=== PATIENT | male | born 1975 | race Caucasian/White ===

== ENCOUNTER 2018-08-29 06:34 | Day surgery (SDC) | payer BC ==
[~2018-08-29] VITALS: Ht 182.9 cm; Wt 120.2 kg
[2018-08-29 07:14] LABS: CALCIUM 8.9 mg/dL (8.5-10.1); CARBON DIOXIDE 24.9 mmol/L (21.0-32.0); CREATININE - SERUM 5.3 mg/dL (0.6-1.3); POTASSIUM - SERUM 3.9 mmol/L (3.5-5.1)
[2018-08-29 07:27] LABS: BASOPHILS 0.6 % (0-2); EOSINOPHILS 4.7 % (0-7); HEMATOCRIT 35.2 % (42.0-54.0); HEMOGLOBIN 11.4 g/dL (13.5-17.5); IMMATURE GRANULOCYTES 0.5 % (0-5); LYMPHOCYTES 15.8 % (15-50); MCH 26.3 pg (26.0-34.0); MCHC 32.4 g/dL (31.0-37.0); MCV 81.3 fL (80.0-100.0); MEAN PLATELET VOLUME 10.2 fL (7.4-10.4); MONOCYTES 15.1 % (2-11); NEUTROPHILS 63.3 % (40-80); PLATELET COUNT 199 10x3/uL (130-400); RBC 4.33 10x6/uL (4.20-6.10); RDW 17.7 % (11.5-14.5); WBC 8.1 10x3/uL (4.8-10.8)
[2018-08-29 07:39] VITALS: BP 150/86; Ht 182.9 cm; Wt 120.2 kg
[2018-08-29 07:59] LABS: APTT 31.4 SECONDS (22.8-39.4); PROTIME 12.7 SECONDS (11.6-15.0)
[2018-08-29] MEDS ORDERED: PROTONIX40 MG PO (08:06)
[2018-08-29] MEDS ORDERED: CATAPRES0.2 MG PO (08:06)
[2018-08-29] MEDS ORDERED: ATARAX 25 MG TA25 MG PO (08:06)
[2018-08-29] MEDS ORDERED: HYDRALAZINE HC100 MG PO (08:06)
[2018-08-29] MEDS ORDERED: HYDROCO (08:07)
[2018-08-29] MEDS ORDERED: APAP (08:07)
[2018-08-29] MEDS ORDERED: BUMETANIDE TAB 1MG (08:07)
[2018-08-29] MEDS ORDERED: TRAZODONE TAB 50M (08:08)
[2018-08-29] MEDS ORDERED: RENA-VITE TABL0.8 MG PO (08:08)
[2018-08-29] MEDS ORDERED: UROXATRAL10 MG PO (08:09)
[2018-08-29] MEDS ORDERED: HYDROCODON-ACE1 EAC7 PO (11:18)
--- NOTE | 2018-09-01 13:37 | OP ---
PATIENT NAME: ANATOLIY BHATIA JR MEDICAL RECORD: [id number] :73 LOCATION:D[facility] ADMISSION DATE: SURGEON: CELI SKINNER MD DATE OF OPERATION: 08/29/2018 REFERRED BY: Dr. Neptali Thapa. PREOPERATIVE DIAGNOSES: End-stage renal disease and dependence on hemodialysis. POSTOPERATIVE DIAGNOSES: End-stage renal disease and dependence on hemodialysis. OPERATION PERFORMED: 1. Creation of the left wrist Denise radiocephalic arterial venous fistula. 2. Laparoscopic implantation of peritoneal dialysis catheter. SURGEON: Celi Skinner MD ANESTHESIA: General endotracheal plus regional nerve block per BRAZER HELPER INDUCTION. PREOPERATIVE NOTE: Mr. Bhatia is a 42-year-old white male from [place], on dialysis with a right internal jugular tunneled dialysis catheter. He needs long-term access and was referred to me for a fistula and a PD catheter. DESCRIPTION OF PROCEDURE: Under anesthesia, the patient was prepped and draped in sterile manner. The fistula was done first, I examined him with Duplex ultrasound after applying a proximal venous tourniquet and after the application of topical nitroglycerin paste. He had a good cephalic vein from the wrist to the deltopectoral groove and a large clean radial artery and I elected to go ahead with this Denise wrist fistula. I made a longitudinal incision and mobilized the cephalic vein and the radial artery, the latter was controlled with Silastic loops. The vein was fully mobilized and ligated distally with a 3-0 Vicryl and was then transected and bevelled, flushed and hydrostatically distended with heparinized saline. The artery was occluded and a small arteriotomy made. The artery was flushed proximally and distally with heparinized saline. No other systemic anticoagulation was utilized. The vein was anastomosed to the artery, end of vein to side of artery with a running 7-0 Prolene. When completed and with release of the occluding loops and clamps, excellent flow developed immediately within the fistula and there was excellent continuous pulsatile Doppler flow in the fistula and in the radial artery. The suture line was hemostatic and otherwise hemostasis was obtained with discrete use of electrocautery in the wound. The wound was irrigated with saline and then closed without the use of a drain with a few interrupted inverted 3-0 Vicryls and running intracuticular 4-0 Monocryl and Dermabond glue. The wound was dressed with Maxorb Ag, Tegaderm, and Cavilon skin prep. Next, the patient's arm was tucked and the PD catheter inserted. The abdomen was prepped and draped simultaneously as the left arm. I made a small incision in the left upper quadrant below the costal margin and lateral to the rectus muscle. A 5-mm XL Optiview type port with a 0-degree 5-mm laparoscope was inserted. A pneumoperitoneum was established with carbon dioxide. The patient had no significant amount of omentum in the lower half of the pelvis. There were no abnormalities, inflammation, or adhesions seen and no hernias detected. The abdomen was deflated. I then measured with the dual cuff swan neck coil catheter from the top of the coil up in the midline and identified a site for OPERATIVE REPORT [id number] ANATOLIY BHATIA JR placement of the Dacron felt cuff within the rectus muscle. I made an incision and exposed the anterior rectus sheath and used a needle and guidewire passed through the anterior abdominal wall at an angle keeping it within the rectus muscle and anterior to the peritoneum as far inferiorly as possible. Over the guidewire, then a peel-away introducer dilator was inserted and lastly the coiled dual cuff swan neck catheter was inserted. The catheter had been irrigated, flushed, and washed with heparinized saline and air expressed from the Dacron felt cuffs. The catheter was placed in a subcutaneous tunnel to the exit site, which was identified preoperatively. The catheter was irrigated and I noted that it flushed very easily and return of saline was easy as well and this also was done after insufflation was exhausted. The catheter was heparin locked, clamped, and capped and a sterile dressing applied over it. A pursestring suture of 0 Vicryl was placed in the anterior rectus sheath at the insertion site around the catheter and that wound was infiltrated with 0.25% Marcaine with epinephrine and closed with interrupted inverted 3-0 Vicryl and then running intracuticular 4-0 Monocryl and Dermabond glue, Maxorb Ag, Tegaderm, and Cavilon skin prep. The laparoscopic port and scope were then removed and that site closed with a simple interrupted inverted 3-0 Vicryl and Dermabond glue and dressed with Maxorb Ag, Tegaderm, and Cavilon skin prep. The patient was then awakened and extubated and taken to the recovery room in stable condition. There was no blood loss during the procedure. Sponges, instruments, and needles were accounted for. No drain was used and no surgical specimen was submitted for histopathology. PLAN: For the patient to go home today with a prescription for 10 Sanders 5/325 tablets. He can take 1 every 4 hours as needed for pain and is advised to use an ice pack on the abdomen for discomfort and elevate his forearm and wrist as needed. He is to have an appointment scheduled to see me in the office next week and also he needs an appointment to see the peritoneal dialysis nurse in [place] to have his catheter flushed next week, hopefully before his appointment to see me. He will continue all the same medications, diet, dialysis schedule, etc. I thought that the patient's vessels were excellent and I expect that the fistula should mature to a very good and usable fistula hopefully and probably without intervention, one might expect it to be usable in 6 weeks. The peritoneal dialysis catheter should be usable that is he could start exchanges in 2 weeks. TRANSINT:[id number] Voice Confirmation ID: [id number] DOCUMENT ID: [id number] cc: Tereza Cordero [place], [place] [phone] CELI SKINNER MD at 1337 CC: ANDREI CORDERO and NEPTALI THAPA [phone] DICTATION DATE: 08/29/18 1137 TRUCKSMITH: 08/29/18 1235 [facility] 08/29/18 [facility] [address] [place] [address]
== END 2018-08-29 14:30 | disposition home or self-care (01) ==
LOC: D.OPS 06:34
PROVIDERS: Surgery
DX: I12.0 Hypertensive chronic kidney disease with stage 5 chronic kidney disease or end stage renal disease (principal); N18.6 End stage renal disease; Z99.2 Dependence on renal dialysis

== ENCOUNTER 2019-12-21 05:51 | Inpatient (IN) | payer BC, MEDICARE ==
[~2019-12-21] VITALS: Ht 188 cm; Wt 131.4 kg
--- NOTE | ~2019-12-21 | OP ---
PATIENT NAME: ANATOLIY BHATIA JR MEDICAL RECORD: [id number] :73 LOCATION:D. D.2136 ADMISSION DATE:12/21/19 SURGEON: CELI SKINNER MD DATE OF OPERATION: 12/21/2019 He was brought to the hospital as an outpatient, but is being admitted to inpatient status. REFERRING PHYSICIAN: Dr. Calvert and Dr. Pineda. PREOPERATIVE DIAGNOSES: End-stage renal disease and dependence on renal dialysis and nonfunctioning peritoneal dialysis catheter and mechanical complication of a left radiocephalic Denise arteriovenous fistula. POSTOPERATIVE DIAGNOSES: End-stage renal disease and dependence on renal dialysis and nonfunctioning peritoneal dialysis catheter and mechanical complication of a left radiocephalic Denise arteriovenous fistula with the additional diagnosis of pelvic peritonitis due to probable diverticulitis and phlegmon with possible colovesical fistula. OPERATION PERFORMED: First peritoneogram via peritoneal dialysis catheter with attempt to manipulate the dialysis catheter, which was unsuccessful followed by laparoscopy and clearance of the peritoneal dialysis catheter and examination of phlegmonous inflammatory process in the pelvis and sampling of purulent fluid for Gram stain and culture and sensitivities. Then, in addition, I placed a right internal jugular triple lumen Trialysis acute dialysis catheter. SURGEON: Celi Skinner MD ANESTHESIA: General endotracheal per VOICE TEACHER. PREOPERATIVE NOTE: This 44-year-old white male patient from [place] is on chronic peritoneal dialysis with the catheter I placed I think about 2 years ago. He has been working fine up until the last 2-3 weeks when it stopped draining. He has a left wrist Denise-type radiocephalic AV fistula, but it apparently has a stenosis, which is making it difficult to access and use for hemodialysis. The patient was treated with laxatives to treat a problem with chronic constipation by the peritoneal dialysis nurse specialist. He reports that he had little results from that. He has been having considerable lower abdominal and pelvic discomfort associated with he believes is peritoneal dialysis attempts and presence of a catheter. He also admits to having urinary symptoms which he has attributed to prostatism and chronic constipation. He is brought to the OR at this time with plans to try to clear or revise his peritoneal dialysis catheter, possibly with laparoscopy. Also, if we can I will do a fistulogram and try to intervene as needed on the Denise fistula. Under anesthesia, the patient was placed in supine position, prepped and draped in sterile manner. I first used fluoroscopy to examine and locate the peritoneal dialysis catheter. I saw the coil located in the right lower quadrant of the abdomen really out of the pelvis and not in satisfactory position. I injected Contrast Material and filled basically the tissue around the coiled end of the catheter and the right gutter without any significant flow into the pelvis. I attempted to manipulate the catheter with a Marilyn catheter and with an Amplatz wire and with a Roadrunner wire but really was unsuccessful with all these modes and I elected to go ahead with laparoscopy. OPERATIVE REPORT [id number] ANATOLIY BHATIA JR TECHNIQUE: A 5 mm port was placed through an incision in the left upper quadrant and a 30-degree 5-mm scope was inserted after pneumoperitoneum was established. The catheter was seen in the right lower quadrant and bowel was filling the pelvis. There was really no visible omentum in the lower abdomen. The patient was placed in Trendelenburg position to help move the bowel from pelvic area and I inserted 2 additional 5-mm ports, one in the left lower quadrant and one in the right through which I is used instruments to help retract the intestine. I identified a true pelvis and found that there were adhesions in the upper pelvis between the sigmoid colon and the urinary bladder which were quite dense and this inflammatory process involved small bowel as well and I thought might well represent diverticulitis with colovesical fistula even as a possibility. I really did not see any large number of diverticula and the possibility of cancer or neoplasm and certainly real as well. I did not see the appendix, but I did not think this looked like an appendicitis. The purulent fluid, which I was able to expose in the pelvis was suctioned away and sent for culture and Gram stain. The Gram stain report returned moderate wbc's with occasional or rare Gram-positive cocci. It was cultured for aerobic and anaerobic organisms. At this point in the operation, my inclination was to go ahead with an open laparotomy approach to explore the pelvis and made preparations for that, but change my mind and the patient's instrumentation was removed and the incisions closed and dressed and the patient awakened and extubated and taken to the recovery room. I plan to obtain a CT scan of the abdomen and pelvis with contrast and if necessary, a cystogram and we will obtain consultation with other general surgeons and if possible with urology as well as nephrology. I think he will need to be returned to the operating room for a resection. Hopefully, he will be able to have a mechanical bowel prep before that and be able to avoid a stoma. I did not think it is appropriate to try to go ahead and do any work on his fistula today, but I realized that he will need dialysis access and so I had him prepped and draped and inserted a triple lumen Trialysis 15 cm catheter with real time ultrasound as well as fluoroscopic guidance via the right internal jugular vein. Ultrasound images were documented per the PACS system and will be maintained for the patient record. TRANSINT:[id number] Voice Confirmation ID: [id number] DOCUMENT ID: [id number] CELI SKINNER MD CC: RICO PINEDA MD and FANTASMA CALVERT DO [id number] DICTATION DATE: 12/21/19 160 GENERAL FARMWORKER: 12/22/19 0127 ADM IN [facility] [address] [place] [address]
--- NOTE | ~2019-12-21 | OP ---
PATIENT NAME: ANATOLIY BHATIA JR MEDICAL RECORD: [id number] :73 LOCATION:D.M2 D.2136 ADMISSION DATE:12/21/19 SURGEON: CELI SKINNER MD DATE OF OPERATION: 12/25/2019 DIAGNOSES: End-stage renal disease and dependence on hemodialysis and pelvic peritonitis due to diverticulitis complicating peritoneal dialysis and AV fistula stenosis. OPERATION PERFORMED: Fistulogram with balloon angioplasty of left radiocephalic AV fistula and removal of peritoneal dialysis catheter. SURGEON: Celi Skinner MD ANESTHESIA: General endotracheal per DAMPENER. PREOPERATIVE NOTE: Mr. Bhatia is a 44-year-old white male patient from [place], who has end-stage renal disease and is on chronic home peritoneal dialysis. His peritoneal catheter ceased to function or began to function poorly about three weeks ago, and he had been dialyzed with his left radiocephalic AV fistula, but that was noted to have a stenosis. Last week, I performed a laparoscopy with the intent of revising the peritoneal dialysis catheter and, sounds, pelvic peritonitis from what I believe to be diverticulitis, which did not actually involve the peritoneal catheter. I did not remove the catheter, but did nothing else really to revise it. I did move it from the right lower quadrant, more towards the midline, but it migrated back to the right lower quadrant right away. I then did not perform a fistulogram, but admitted the patient to the hospital for antibiotic therapy and further evaluation with CT scan, etc. He is now at this time, very much improved, afebrile with a normal white count and abdomen soft. He still complains of some abdominal pain, but it is minimal and I am bringing him back to the operating room at this time to go ahead and remove the peritoneal dialysis catheter, which I do not think will be usable and I plan to do the fistulogram and whatever indicated procedures are necessary for his AV fistula. DESCRIPTION OF PROCEDURE: Under anesthesia in supine position, the patient was prepped and draped in sterile manner. I accessed the fistula near the arterial anastomosis with a 7-Azeri introducer using micropuncture technique. I did use ultrasound for real-time guidance and images were obtained and placed in the patient's permanent record for documentation. I examined the fistula with ultrasound and noted that there was evidence of a stenosis only a few inches proximal to the arterial anastomosis. Contrast injections confirmed the presence of a single stenosis, and there were no other problems seen with good runoff via the cephalic vein through the cephalic arch and central veins to the right atrium. I then performed an angioplasty with an 8 millimeter balloon. This required a [employer] high pressure balloon to dilate the area of stenosis, which was about 70% diameter reducing and about 1.5 to 2 cm long. We got full effacement of the balloon at 20 atmospheres. Subsequent contrast studies demonstrated a satisfactory 10% residual diameter stenosis at this point. The outflow was occluded with a balloon and contrast injected for a retrograde study. This demonstrated a large collateral vein carrying flow distally into the hand and forearm and also demonstrated the JA segment to be somewhat aneurysmal and the arterial anastomosis itself to be widely patent with normal flow through dilated OPERATIVE REPORT [id number] ANATOLIY BHATIA JR proximal radial artery and good flow into the distal artery with filling of the palmar arch, but no filling of the ulnar artery. The introducer was removed and hemostasis obtained with a tnugtj-si-avand 4-0 Prolene suture. A sterile dressing was applied. The abdomen was then exposed and the previous vertical incision reopened and carried down to the peritoneal dialysis catheter. The deep cuff was exposed and dissected from the surrounding rectus sheath and then gently elevated and the internal portion of the catheter removed intact. The superficial cuff was then dissected and freed from the surrounding tissues and the catheter transected and the external and internal portion was then removed. The wound was infiltrated with 0.25% Marcaine and irrigated with Ancef/gentamicin solution and closed with interrupted inverted 3-0 Vicryl and surgical gaby. A dressing of Maxorb Ag, Tegaderm, and Cavilon skin prep was applied. At that point, the patient was awakened and extubated and taken to the recovery room in stable condition. Blood loss was insignificant and unreplaced. Sponges, instruments, and needles were accounted for. No surgical specimen was submitted for histopathology. PLAN: I believe the patient is ready to have his antibiotics stopped and be sent home on a renal diet as tolerated. I will need to see him back in my office next week for wound check and staple removal. Dr. Lyons who has been seeing the patient at my request, I hope, will see the patient back, and I hope he will perform a colonoscopy in about six weeks. I would like this patient to have a fistulogram done at [facility] in about a month and consideration then for coiling or ligation of the large diverting collateral. TRANSINT:[id number] Voice Confirmation ID: [id number] DOCUMENT ID: [id number] cc: [facility] dialysis in CELI Ricketts MD CC: RICO BONILLA MD and CELI LYONS MD [phone] DICTATION DATE: 12/25/19 1511 WORM GROWER: 12/26/19 0208 DIS IN 12/25/19 [facility] [address] [place] [id number]
[~2019-12-21 05:51] MED LIST: APAP; ATARAX 25 MG TA25 MG PO; BUMETANIDE TAB 1MG; CATAPRES0.2 MG PO; HYDRALAZINE HC100 MG PO; HYDROCO; HYDROCODON-ACE1 EAC7 PO; PROTONIX40 MG PO; RENA-VITE TABL0.8 MG PO; TRAZODONE TAB 50M; UROXATRAL10 MG PO
[2019-12-21 06:13] LABS: BASOPHILS 0.2 % (0-2); EOSINOPHILS 3.4 % (0-7); HEMATOCRIT 39.7 % (42.0-54.0); HEMOGLOBIN 12.9 g/dL (13.5-17.5); IMMATURE GRANULOCYTES 0.3 % (0-5); LYMPHOCYTES 10.7 % (15-50); MCH 31.1 pg (26.0-34.0); MCHC 32.5 g/dL (31.0-37.0); MCV 95.7 fL (80.0-100.0); MEAN PLATELET VOLUME 9.8 fL (7.4-10.4); MONOCYTES 9.6 % (2-11); NEUTROPHILS 75.8 % (40-80); PLATELET COUNT 214 10x3/uL (130-400); RBC 4.15 10x6/uL (4.20-6.10); RDW 13.9 % (11.5-14.5); WBC 12.8 10x3/uL (4.8-10.8)
[2019-12-21 06:21] LABS: CALCIUM 8.8 mg/dL (8.5-10.1); CARBON DIOXIDE 29.5 mmol/L (21.0-32.0); CREATININE - SERUM 5.6 mg/dL (0.6-1.3); POTASSIUM - SERUM 3.5 mmol/L (3.5-5.1)
[2019-12-21 06:29] LABS: INR 1.07 (0.85-1.17); PROTIME 13.9 SECONDS (11.6-15.0)
[2019-12-21] MEDS ORDERED: BUMEX2 MG PO ×2 (08:24→23:26)
[2019-12-21] MEDS ORDERED: NORVASC10 MG PO (08:24)
[2019-12-21] MEDS ORDERED: CARDURA8 MG PO (08:25)
[2019-12-21] MEDS ORDERED: METOPROLOL TART50 MG PO (08:56)
[2019-12-21] MEDS ORDERED: KLONOPIN1 MG PO (08:56)
[2019-12-21 09:03] VITALS: BMI 38.6
[2019-12-21 16:27] VITALS: BP 130/77; BMI 38.6
--- NOTE | 2019-12-21 20:07 | NUR ---
RECEIVED UP IN BED WITH EYES OPEN AND TV ON. ALERT AND ORIENTED X4. UP AD LOIB TO B/R. O2@ 3 LITERS PER N/C IN PLACE. IV TO RT HAND WITH NS AT KVO. AVF TO LT WRIST AREAHAS GOOD BRUIT. PD CATH TO LLQ. HAS 3 DSG TO ABD THAT ARE CDI. RT IJ THAT IS SL. F/C IN PLACE WITH NO OUTPUT AT THIS TIME. DENIES ANY NEEDS AT THIS TIME.
[2019-12-21 21:12] VITALS: BP 131/77
--- NOTE | 2019-12-22 00:08 | NUR ---
VOICED CONCERNS OF HIS MEDICATIONS. HAD REEMA SHARIF PAGED. RETURN CALL WITH NEW ORDERS TO GIVE HIM HYDRALAZINE,CLONIDINE AND KLONIPINE. TO GO AHEAD AND RESTART THEM. REEMA STATED SHE WOULD LOOK AT HIS MEDICATIONS IN AM. NOTIFIED PT OF NEW ORDERS AND GAVE HIM THE MEDS. WILL RECHECK B/P. 155/100 AT THIS TIME.
[2019-12-22 00:09] VITALS: BP 155/100
[2019-12-22 05:07] VITALS: BP 138/84
--- NOTE | 2019-12-22 07:32 | NUR ---
PT RESTING PEACEFULLY, WOKE EASILY I ENTERED ROOM. NO COMPLAINTS OR CONCERNS STATED AT THIS TIME.ALL QUESTIONS ANSWERED TO THE BEST OF MY ABILITY. CL IN REACH,S RX2.
[2019-12-22 08:46] LABS: BASOPHILS 0.1 % (0-2); EOSINOPHILS 0.2 % (0-7); HEMATOCRIT 38.7 % (42.0-54.0); HEMOGLOBIN 12.1 g/dL (13.5-17.5); IMMATURE GRANULOCYTES 0.4 % (0-5); LYMPHOCYTES 4.4 % (15-50); MCH 30.6 pg (26.0-34.0); MCHC 31.3 g/dL (31.0-37.0); MEAN PLATELET VOLUME 10.2 fL (7.4-10.4); NEUTROPHILS 87.9 % (40-80); PLATELET COUNT 230 10x3/uL (130-400); RBC 3.96 10x6/uL (4.20-6.10); RDW 13.7 % (11.5-14.5); WBC 14.2 10x3/uL (4.8-10.8)
[2019-12-22 08:50] LABS: MCV 97.7 fL (80.0-100.0)
[2019-12-22 08:55] VITALS: Ht 188 cm; Wt 131.4 kg
[2019-12-22 09:07] LABS: ALBUMIN 2.6 g/dL (3.4-5.0); ANION GAP 14.6 mmol/L (8-16); BILIRUBIN - TOTAL 0.43 mg/dL (0.2-1.3); CALCIUM 8.8 mg/dL (8.5-10.1); CARBON DIOXIDE 24.6 mmol/L (21.0-32.0); CREATININE - SERUM 6.4 mg/dL (0.6-1.3); POTASSIUM - SERUM 4.2 mmol/L (3.5-5.1); PROTEIN - SERUM 6.7 g/dL (6.4-8.2)
[2019-12-22 09:44] VITALS: BP 133/84
--- NOTE | 2019-12-22 10:18 | NUR ---
PT AWAKE AND ORIENTED, TAKEN TO CT AND BACK. NO COMPLAINTS OR CONCERNS AT THIS TIME. ALL QUESTIONS ANSWERED TO THE BEST OF MY ABILITY. CL IN REACH, SRX2.
[2019-12-22 12:54] VITALS: BP 143/89
--- NOTE | 2019-12-22 15:47 | NUR ---
NEW ORDER RECEIVED FROM FOR MIRALAX 17GM DAILY.
[2019-12-22 16:00] VITALS: BP 145/84
--- NOTE | 2019-12-22 17:23 | NUR ---
PT TAKEN TO DIALYSIS
[2019-12-22 20:00] VITALS: BP 149/91
--- NOTE | 2019-12-22 21:00 | NUR ---
PT UP IN CHAIR, AAO X 3, RESP EVEN AND UNLABORED. NO DISTRESS NOTED, CLIN REACH, SR UP X 2.
[2019-12-23] VITALS: BP 164/101
--- NOTE | 2019-12-23 02:06 | NUR ---
I have reviewed this patient and I concur with the Shift Assessment completed by the Licensed Practical Nurse today this shift.
[2019-12-23 04:00] VITALS: BP 158/97
[2019-12-23 05:20] LABS: BASOPHILS 0.3 % (0-2); EOSINOPHILS 2.8 % (0-7); HEMATOCRIT 38.6 % (42.0-54.0); HEMOGLOBIN 12.1 g/dL (13.5-17.5); IMMATURE GRANULOCYTES 0.4 % (0-5); LYMPHOCYTES 9.3 % (15-50); MCH 30.5 pg (26.0-34.0); MCHC 31.3 g/dL (31.0-37.0); MCV 97.2 fL (80.0-100.0); MEAN PLATELET VOLUME 10.1 fL (7.4-10.4); MONOCYTES 10.4 % (2-11); NEUTROPHILS 76.8 % (40-80); PLATELET COUNT 232 10x3/uL (130-400); RBC 3.97 10x6/uL (4.20-6.10); RDW 13.7 % (11.5-14.5); WBC 10.9 10x3/uL (4.8-10.8)
[2019-12-23 05:34] LABS: ANION GAP 10.6 mmol/L (8-16); CALCIUM 8.9 mg/dL (8.5-10.1); CARBON DIOXIDE 27.9 mmol/L (21.0-32.0); CREATININE - SERUM 5.4 mg/dL (0.6-1.3)
[2019-12-23 05:39] LABS: POTASSIUM - SERUM 3.5 mmol/L (3.5-5.1)
[2019-12-23 08:44] VITALS: BP 149/96
[2019-12-23 11:41] VITALS: BP 148/85
[2019-12-23 15:24] VITALS: BP 149/88
--- NOTE | 2019-12-23 20:01 | NUR ---
RECEIVED UP AMBULATING AROUND LO WAY. ALERT AND ORIENTED X4. UP AD NICK. DSG X2 TO ABD. 3RD SITE SCABBED OVER. LT ARM RESERVED D/T AVF. PD CATH TO LLQ WITH DSG CDI. TRIALYSIS TI RIGHT SIDE OF NECK AND IV TO RT HAND SL. DENIES ANY NEEDS AT THIS TIME.
[2019-12-23 20:30] VITALS: BP 146/96
[2019-12-24 00:30] VITALS: BP 177/92
[2019-12-24 04:30] VITALS: BP 156/89
[2019-12-24 04:40] LABS: ALBUMIN 2.8 g/dL (3.4-5.0); ANION GAP 11.8 mmol/L (8-16); BILIRUBIN - TOTAL 0.31 mg/dL (0.2-1.3); CALCIUM 8.5 mg/dL (8.5-10.1); CARBON DIOXIDE 26.6 mmol/L (21.0-32.0); CREATININE - SERUM 6.3 mg/dL (0.6-1.3); POTASSIUM - SERUM 3.4 mmol/L (3.5-5.1); PROTEIN - SERUM 6.6 g/dL (6.4-8.2)
[2019-12-24 07:40] VITALS: BP 161/102
[2019-12-24 12:07] LABS: BILIRUBIN NEGATIVE (NEGATIVE); GLUCOSE 50 mg/dL (NEGATIVE); KETONE NEGATIVE (NEGATIVE); NITRITE NEGATIVE (NEGATIVE); SPECIFIC GRAVITY 1.015 (1.005-1.020); UROBILINOGEN NORMAL (NORMAL)
[2019-12-24 12:08] LABS: BACTERIA FEW /hpf (NEGATIVE); EPITHELIAL CELLS RARE /hpf (0-5); RED CELLS - URINE >50 /hpf (0-5); WHITE CELLS - URINE 0-5 /hpf (NEGATIVE)
--- NOTE | 2019-12-24 14:55 | MORECARE ---
CASE MANAGEMENT DISCHARGE SUMMARY PATIENT: ANATOLIY BHATIA JR UNIT: [id number] ADM DATE: 12/21/19 AGE: 44 : [birth year] SEX: M ROOM/BED: D.[facility]6 AUTHOR: JONATAN SANCHEZ PHYSICIAN: REFERRING PHYSICIAN: RICO BONILLA MD DATE OF SERVICE: 12/24/19 Discharge Plan Patient Name: ANATOLIY BHATIA Facility: [facility]:[place] : 1975 Planned Disposition: Anticipated Discharge Date: Discharge Date: Expected LOS: Initial Reviewer: [email or web address] Initial Review Date: 12/21/2019 Generated: 12/24/19 3:54 pm Patient Name: ANATOLIY BHATIA Page [id number] at 1455 All edits/amendments must be made on the electronic document DICTATION DATE: 12/24/19 1454 FOOT GATHERER: JW 12/24/19 1454 RPT#: [id number] DC DATE: STATUS: ADM IN [facility] [address] [place] [address] END OF REPORT
--- NOTE | 2019-12-24 15:21 | MORECARE ---
CASE MANAGEMENT DISCHARGE SUMMARY PATIENT: ANATOLIY BHATIA JR UNIT: [id number] ADM DATE: 12/21/19 AGE: 44 : [birth year] SEX: M ROOM/BED: D.[facility]6 AUTHOR: JONATAN SANCHEZ PHYSICIAN: REFERRING PHYSICIAN: RICO BONILLA MD DATE OF SERVICE: 12/24/19 Discharge Plan Patient Name: ANATOLIY BHATIA Facility: [facility]:[place] : 1975 Planned Disposition: Anticipated Discharge Date: Discharge Date: Expected LOS: Initial Reviewer: [email or web address] Initial Review Date: 12/21/2019 Generated: 12/24/19 4:21 pm Comments DCP- Discharge Planning Updated by [email or web address]: Adwoa Ridley on 12/24/19 2:[address] CM attempted to meet with pt on 12/20, and 12/23. Pt not in room during these times. Cm will continue to attempt dc assessment planning. Adwoa Ridley MSN,RN,CM Last DP export: 12/24/19 1:55 pm Patient Name: ANATOLIY BHATIA Page [phone] at 1521 All edits/amendments must be made on the electronic document DICTATION DATE: 12/24/19 1521 INSTRUMENT MECHANIC: JW 12/24/19 1521 RPT#: [id number] DC DATE: STATUS: ADM IN [facility] [address] [place] [address] END OF REPORT
--- NOTE | 2019-12-24 15:52 | NUR ---
PT BACK FROM DIALYSIS. NO COPLAINTS OR CONCERNS AT THIS TIME. CL IN REACH,S RX2.
--- NOTE | 2019-12-24 19:21 | NUR ---
REPORT RECEIVED AND ROUNDING COMPLETE. ALVARO LAYING IN BEDIN HIGH FOWLERS, A&O X4. PATIENT HAS A RIGHT HAND THAT IS PATENT AND SHOWS NO S/SX OF INFILTRATION AT THIS TIME. PATIENT ASKED FOR PAIN MEDICATION, WILL CHECK MAR AND TREAT PER ORDERS. NO S/SX OF DISTRESS AT THIS TIME. PATIENT HAS NO OTHER NEEDS AT THIS TIME.CALL LIGHT WITHIN REACH AND BED IN LOWEST LOCKED POSITION.
[2019-12-24 19:52] VITALS: BP 145/91
--- NOTE | 2019-12-24 20:15 | NUR ---
PATIENT TO THE FLOOR FROM DIALYSIS VIA BED.
[2019-12-24 23:58] VITALS: BP 148/101
[2019-12-25 00:40] VITALS: BP 170/90
--- NOTE | 2019-12-25 00:41 | NUR ---
MANAGER EDITORIAL REPORTS B/P OF 148/101, PAGED RENAL AND TOOK A MANUAL B/P 170/90. WILL AWAIT A CALL BACK AND MONITOR CLOSELY.
[2019-12-25 04:23] VITALS: BP 125/67
[2019-12-25 06:32] LABS: BASOPHILS 0.3 % (0-2); EOSINOPHILS 5.7 % (0-7); HEMATOCRIT 39.7 % (42.0-54.0); HEMOGLOBIN 12.9 g/dL (13.5-17.5); IMMATURE GRANULOCYTES 0.9 % (0-5); LYMPHOCYTES 9.3 % (15-50); MCH 30.6 pg (26.0-34.0); MCHC 32.5 g/dL (31.0-37.0); MEAN PLATELET VOLUME 10.1 fL (7.4-10.4); MONOCYTES 16.1 % (2-11); NEUTROPHILS 67.7 % (40-80); PLATELET COUNT 221 10x3/uL (130-400); RBC 4.22 10x6/uL (4.20-6.10); RDW 13.3 % (11.5-14.5); WBC 9.8 10x3/uL (4.8-10.8)
[2019-12-25 06:37] LABS: MCV 94.1 fL (80.0-100.0)
[2019-12-25 06:55] LABS: ALBUMIN 3.1 g/dL (3.4-5.0); ANION GAP 15.1 mmol/L (8-16); BILIRUBIN - TOTAL 0.5 mg/dL (0.2-1.3); CALCIUM 9.2 mg/dL (8.5-10.1); CARBON DIOXIDE 24.3 mmol/L (21.0-32.0); CREATININE - SERUM 6.1 mg/dL (0.6-1.3); POTASSIUM - SERUM 3.4 mmol/L (3.5-5.1); PROTEIN - SERUM 7.2 g/dL (6.4-8.2)
--- NOTE | 2019-12-25 07:39 | NUR ---
PT RECEIVED RESTING BUT AROUSES TO VOICE. PREOP FOR SURGERY DONE. PT HAS BEEN NPO EXCEPT FOR SIPS FOR MEDS.
[2019-12-25] MEDS ORDERED: VIBRAMYCIN 100100 MG PO (12:54)
--- NOTE | 2019-12-25 13:16 | NUR ---
PT TO ROOM FROM PACU ON BED. LAP SITES NOTED TO ABD, DRESSING TO MID ABD. PT RESTING BUT AROUSES EASILY. BP UP, PO MEDS GIVEN.
[2019-12-25 13:19] VITALS: BP 168/102
--- NOTE | 2019-12-25 14:21 | NUR ---
Nutrition Follow-up: NPO this AM for fistulogram and PD cath removal. Out of room at time of visit. Chart reviewed. PO intake: 75-100% yesterday WT: 289# (12/24); 299# (12/21) Labs noted: K+ 3.4, Alb 3.1 Meds noted: Miralax, Pepcid -Rec resume diet as tolerated following procedure. -Monitor wt. -RD following.
--- NOTE | 2019-12-25 15:54 | MORECARE ---
CASE MANAGEMENT DISCHARGE SUMMARY PATIENT: ANATOLIY BHATIA JR UNIT: [id number] ADM DATE: 12/21/19 AGE: 44 : [birth year] SEX: M ROOM/BED: D[facility] AUTHOR: JONATAN SANCHEZ PHYSICIAN: REFERRING PHYSICIAN: RICO BONILLA MD DATE OF SERVICE: 12/25/19 Discharge Plan Patient Name: ANATOLIY BHATIA Facility: [facility]:[place] : 1975 Planned Disposition: Anticipated Discharge Date: Discharge Date: Expected LOS: Initial Reviewer: [email or web address] Initial Review Date: 12/21/2019 Generated: 12/25/19 4:54 pm Comments DCP- Discharge Planning Updated by [email or web address]: Adwoa Ridley on 12/24/19 2:[address] CM attempted to meet with pt on 12/20, and 12/23. Pt not in room during these times. Cm will continue to attempt dc assessment planning. Adwoa Ridley MSN,RN,CM Last DP export: 12/24/19 2:21 pm Patient Name: ANATOLIY BHATIA Page [id number] at 1554 All edits/amendments must be made on the electronic document DICTATION DATE: 12/25/19 155 COMPUTER ENGINEER: JW 12/25/19 1554 RPT#: [id number] DC DATE: STATUS: ADM IN [facility] [address] [place] [address] END OF REPORT
--- NOTE | 2019-12-25 16:04 | MORECARE ---
CASE MANAGEMENT DISCHARGE SUMMARY PATIENT: ANATOLIY BHATIA JR UNIT: [id number] ADM DATE: 12/21/19 AGE: 44 : [birth year] SEX: M ROOM/BED: D.1936 AUTHOR: JONATAN SANCHEZ PHYSICIAN: REFERRING PHYSICIAN: RICO BONILLA MD DATE OF SERVICE: 12/25/19 Discharge Plan Patient Name: ANATOLIY BHATIA Facility: [facility]:[place] : 1975 Planned Disposition: Anticipated Discharge Date: Discharge Date: Expected LOS: Initial Reviewer: [email or web address] Initial Review Date: 12/21/2019 Generated: 12/25/19 5:03 pm Comments DCP- Discharge Planning Updated by [email or web address]: Adwoa Ridley on 12/25/19 3:[address] Patient Name: ANATOLIY BHATIA Admission Status: Elective Accout number: [id number] Admission Date: 12-21-2019 : 1975 Admission Diagnosis:MECH COMPL OF INTRAPERITONEAL DIALYSIS CATHETER, INIT E Attending: RICO BONILLA Current LOS: 4 Anticipated DC Date: Planned Disposition: Primary Insurance: [employer] OUT OF STATE Discharge Planning Comments:CM met with patient to complete initial dc planning assessment. CM educated patient on the CM role and verbal consent given by patient to complete assessment. CM verified patient's address, phone number, and emergency contact phone numbers. Patient lives at home with Lise ([phone]) and his son. Pt states up until this admission he was independent of all of his ADL'S. At discharge patient plans to return home and feels this is a safe discharge. CM spoke with patient about the dialysis chair in [place]. Cm spoke with Lelia TINOCO at [phone]. Pt has a chair and his appointment is scheduled at 1100 on December 26. Cm discussed availability of home health, rehab services, and medical equipment. Patient denied known discharge needs at this time. Transportation provider at discharge will be his . CM will continue to follow and will assist as needed with dc plans/needs. Teachers Aide: Adwoa Ridley DCP- Discharge Planning Updated by [email or web address]: Adwoa Ridley on 12/24/19 2:[address] CM attempted to meet with pt on 12/20, and 12/23. Pt not in room during these times. Cm will continue to attempt dc assessment planning. Adwoa Ridley MSN,RN,CM DCPIA - Discharge Planning Initial Assessment Updated by [email or web address]: Adwoa Ridley on 12/25/19 3:55 pm * Is the patient Alert and Oriented? Yes * How many steps to enter\exit or inside your home? 08/30 * PCP Jac * Pharmacy [facility] in [place] * Preadmission Environment Home with Family * ADLs Independent * Equipment CPAP * List name and contact numbers for known caregivers / representatives who currently or will assist patient after discharge: Lise [phone] * Verbal permission to speak to the caregivers and representatives has been obtained from the patient. Yes * Community resources currently utilized None * Additional services required to return to the preadmission environment? No * Can the patient safely return to the preadmission environment? No * Has this patient been hospitalized within the prior 30 days at any hospital? No Last DP export: 12/25/19 2:54 pm Patient Name: ANATOLIY BHATIA Page [id number] at 1604 All edits/amendments must be made on the electronic document DICTATION DATE: 12/25/191602 NEUROPSYCHOLOGIST: JW 12/25/191602 RPT#: [id number] DC DATE: STATUS: ADM IN [facility] [address] [place] [address] END OF REPORT
[2019-12-25 16:56] VITALS: BP 169/81
--- NOTE | 2019-12-25 18:41 | NUR ---
PT'S DISCHARGE INSTRUCTIONS REVIEWED AND SIGNED. TRIALYSIS REMOVED AND DRESSING APPLIED. HERE FOR TRANSPORT.
[2019-12-26 12:10] LABS: HEPATITIS C ANTIBODY 0.1 (0.0-0.9)
== END 2019-12-25 18:42 | disposition home or self-care (01) | DRG 356 ==
LOC: D.OPS 05:51 → D.M2 16:01 → D.OPS 16:02 → D.SDCHOLD 12-25 10:51 → D.M2 12-25 10:54
PROVIDERS: Internal Medicine Nephrology; Surgery; ADMIT Internal Medicine Nephrology; ATTEND Internal Medicine Nephrology
PROC: 05HM33Z Insertion of Infusion Device into Right Internal Jugular Vein, Percutaneous Approach (ICD-10-PCS; 2019-12-21)
PROC: B5131ZA Fluoroscopy of Right Jugular Veins using Low Osmolar Contrast, Guidance (ICD-10-PCS; 2019-12-21)
PROC: 0WWG43Z Revision of Infusion Device in Peritoneal Cavity, Percutaneous Endoscopic Approach (ICD-10-PCS; principal; 2019-12-21 08:00)
PROC: 5A1D70Z Performance of Urinary Filtration, Intermittent, Less than 6 Hours Per Day (ICD-10-PCS; 2019-12-22)
PROC: B51W1ZZ Fluoroscopy of Dialysis Shunt/Fistula using Low Osmolar Contrast (ICD-10-PCS; 2019-12-25)
PROC: B51W1ZZ Fluoroscopy of Dialysis Shunt/Fistula using Low Osmolar Contrast (ICD-10-PCS; 2019-12-25)
PROC: 0WPG33Z Removal of Infusion Device from Peritoneal Cavity, Percutaneous Approach (ICD-10-PCS; 2019-12-25 08:00)
PROC: 037C3ZZ Dilation of Left Radial Artery, Percutaneous Approach (ICD-10-PCS; 2019-12-25 08:00)
DX: K57.80 Diverticulitis of intestine, part unspecified, with perforation and abscess without bleeding (principal); N18.6 End stage renal disease; K65.0 Generalized (acute) peritonitis; T85.691A Other mechanical complication of intraperitoneal dialysis catheter, initial encounter; I12.0 Hypertensive chronic kidney disease with stage 5 chronic kidney disease or end stage renal disease; N25.81 Secondary hyperparathyroidism of renal origin; Y84.9 Medical procedure, unspecified as the cause of abnormal reaction of the patient, or of later complication, without mention of misadventure at the time of the procedure; E11.22 Type 2 diabetes mellitus with diabetic chronic kidney disease; D63.1 Anemia in chronic kidney disease; D50.9 Iron deficiency anemia, unspecified; Z87.891 Personal history of nicotine dependence